=== PATIENT | female | born 1975 | race Caucasian/White ===

== ENCOUNTER 2017-04-30 10:25 | Inpatient (IN) | payer BC ==
[~2017-04-30] VITALS: Ht 160 cm; Wt 52.1 kg
--- NOTE | ~2017-04-30 | CO ---
Unit #: [id number] #: [id number] Patient: LATOSHA SLADE [id number] [facility] [address] [facility]. [place], [place] [address] [id number] I MR#: [id number] NAME: LATOSHA SLADE ROOM: 562 Age: 41 Sex: F Admission Date: 04/30/2017 : 1975 Attending Physician: Randa Gipson M.D. Primary Care Physician: Primary Care Physician No Consultation Date: 05/02/2017 CONSULTATION REPORT REASON FOR CONSULTATION Followup. DISCUSSION Ms. Latosha Slade is a 41-year-old white female, seen in room CCU-3, bed 16, on 05/02/[address] [facility]. The patient was more awake, alert, able to identify her family. The patient somewhat confused and does not remember the circumstances that brought her into the hospital. The patient admitted drinking alcohol. The patient's vital signs; temperature 98.4, heart rate 97, heart rate 25, blood pressure 109/63, and oxygen saturation 97%. The patient was more calm, cooperative, alert, awake, and oriented in place, self, and person. The patient denied any suicidal or homicidal ideation. No agitation. Redirectable and cooperative. REVIEW OF SYSTEMS Complete review of systems unremarkable. MENTAL STATUS EXAMINATION General appearance; the patient dressed in hospital attire, lying comfortably in bed, receiving IV. No agitation, but sad and dysphoric mood. Attention span and concentration, fair. Speech, slow in volume. Oriented in self, place, and person. Mood and affect, flat. Thought process, circumstantial. Thought content, the patient denied any thoughts of harming self or others, but guarded. Recent and remote memory, fair to slightly impaired. Language, fair. Fund of knowledge, fair. Insight and judgment, fair to slightly impaired. DIAGNOSES Psychiatric: Alcohol use disorder, severe, F10.20; delirium, F05, resolving; and opioid use disorder, severe, F11.20. ASSESSMENT AND PLAN 1. Supportive psychotherapy and psychoeducation provided to the patient and family. 2. Educated about benefits and side effects of medication and course and prognosis of illness. 3. Advised to continue with current treatment. If needed, consider alternative medication. We will continue to follow. Please feel free to call if any questions, telephone #[phone]. Dictated by... Tho Prescott M.D. Unit #: [id number] #: [id number] Patient: LATOSHA SLADE ANNMARIE/modl TD: 05/03/2017 14:55 JOB #: [id number] CONSULTATION REPORT Page 1 of 1 X Tho Prescott MD X CONSULTATION REPORT
--- NOTE | ~2017-04-30 | CO ---
Unit #: [id number] #: [id number] Patient: LATOSHA VILA [id number] [address] [place], [place] [address] [id number] I MR#: [id number] NAME: LATOSHA VILA ROOM: CIC3 Age: 41 Sex: F Admission Date: 04/30/2017 : 1975 Attending Physician: Katherine Roldan M.D. Primary Care Physician: Katelyn Primary Care Physician Consultation Date: 04/30/2017 CONSULTATION REPORT REASON FOR CONSULT ICU management. CHIEF COMPLAINT Unresponsiveness. HISTORY OF PRESENT ILLNESS This is a 41-year-old female with past medical history significant for alcoholism, who presented to the emergency room with a cardiac arrest. 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 CPR was started immediately and 911 was called. Per report patient was found to be in ventricular fibrillation/Torsades. Patient received 300 mg of amiodarone bolus. Patient also received 2 mg of Narcan and six rounds of shock. Patient was brought to the emergency room where she was intubated. Currently patient is awake, clumsy. She is following simple commands. Initially she had a left lower extremity weakness but she is moving all her extremities at this point. Per family patient had cholecystectomy in May and since then she has been using narcotics for chronic right-side pain. Patient also drinks daily. PAST MEDICAL HISTORY None. PAST SURGICAL HISTORY Cholecystectomy. ALLERGIES No known drug allergy. HOME MEDICATION Narcotics, unsure of what type. SOCIAL HISTORY Patient smokes one pack per day. She drinks alcohol heavily but unknown quantity. No history of illicit drug abuse except for taking her narcotics. REVIEW OF SYSTEMS Unable to obtain. Unit #: [id number] #: [id number] Patient: LATOSHA VILA FAMILY HISTORY None. PHYSICAL EXAMINATION GENERAL: The patient is intubated, on the vent. Currently she is waking up and she is moving all extremities but initially she had a left lower extremity weakness. VITAL SIGNS: Blood pressure 99/73. Respiratory rate 18. O2 saturation 100. Heart rate 112. HEENT: Normocephalic and atraumatic. PERRLA. EOMI. NECK: Supple. No JVD. No lymphadenopathy. CHEST: Clear to auscultation bilaterally. HEART: S1, S2. Sinus tachycardia. ABDOMEN: Soft, nontender. Bowel sound is positive. No hepatosplenomegaly. EXTREMITIES: No edema or cyanosis. SKIN: No rashes. BANQUET CAPTAIN: Patient currently is waking up. Initially she was isolated on her left side and later she started using the left upper extremity and the last thing she moved was the left lower extremity. Her movements are very clumsy. DIAGNOSTIC STUDIES LABORATORY: Creatinine 0.7, CO2 28, lactic acid 7, white blood count 16.2, hemoglobin 13.9, platelets 235. ASSESSMENT 1. Acute hypoxic respiratory failure. 2. Status post ventricular fibrillation/Torsades cardiac arrest. 3. Alcoholism. 4. Drug overdose. 5. Leukocytosis. PLAN 1. Patient is critical. Will continue patient on the vent and we will assess for extubation when appropriate. 2. Generous IV hydration. Will follow urine output. 3. Will obtain CK level to rule out rhabdomyolysis. 4. Will initiate CIWA protocol if gets extubated. 5. Will watch off antibiotics but she may need something for aspiration pneumonia. 6. Cardiac eval given vfib arrest. 7. DVT and GI prophylaxis. Critical care time spent on this patient was 40 minutes. Dictated by... Bhavya Canales TD: 04/30/2017 21:26 Unit #: [id number] #: [id number] Patient: LATOSHA VILA JOB #: [id number] CONSULTATION REPORT Page 1 of 1 X LEAENNE BHATTI MD X CONSULTATION REPORT
--- NOTE | ~2017-04-30 | A ---
[facility] Nutrition Therapy DATE: 05/01/17 Patient: LATOSHA VILA Physician: ANDREW Address: [address] [place] [address] Room/Bed: [address], Zip: [place] [address] Admit Date: 04/30/17 Date of : [birth year] Height: 5 3 Weight: 121 55 NUTRITIONAL ASSESSMENT: REASON: Low BMI, no diet order in ICU Admitting dx: 41 y/o female found down at work s/p arrest, + CPR, ?OD PMH: ETOH abuse since 22 yrs of age (drinks ~fifth whiskey daily), ?pancreatitis, opioid abuse, joselyn (6-7 months ago), 1 ppd smoker Anthropometrics: Ht: 63", Wt: 106 lbs, BMI: 18 (underweight) Labs: Na 146, K+ 2.2, Mg 1.3, Ca 4.9, Albumin 1.5, AST 126 Meds: Banana bag @ 125 ml/hr, loperamide, phenergan, therapeutic formula, corey (weaning), mgso4, kcl, thiamine, folic acid I/O & Bowel function: Last BM unknown, + constipation due to prolonged opiate use Skin Integrity: No significant issues, no edema Assessment: Chart reviewed, events noted. See admitting dx above. Pt has hx of daily ETOH and opiate abuse. She was extubated last night to 5L nasal cannula. She is clinically underweight, likely 2' above polysubstance abuse and variable PO intake. She will get a stat echo today, lytes being replaced. Per RN pt is not appropriate for interview at this time due to her behavior. No diet ordered as of yet. RD will follow to further determine adequacy of PO intake and nutritional needs. Pt could benefit from an oral supplement. Dx: 1) Inadequate energy intake r/t diet not yet advanced AEB NPO x 2 days. 2) Underweight r/t polysubstance abuse AEB BMI 18. Intervention: Regular diet + ONS BID Monitoring, Evaluation and Goals: 1. Tolerance of oral diet advancement with PO intake > 50% of meals. 2. Gradual weight gain towards a healthy BMI range. 3. Promote regular BM's. 4. Improvement in labs (lytes). Monitor: per protocol, criteria to determine if above goals met Recommendations: [facility] Nutrition Therapy DATE: 05/01/17 Patient: LATOSHA VILA Physician: ANDREW Address: [address] [place] [address] Room/Bed: [address], Zip: [place] [address] Admit Date: 04/30/17 Date of : [birth year] Height: 5 3 Weight: 121 55 1. Once medically feasible advance to regular diet as tolerated. Once diet advanced please order Ensure shakes BID. 2. Encourage ETOH cessation. 3. Continue to replace lytes prn. Check Phos level with next lab draw. 4. Please weigh q 3 days for monitoring purposes, as the pt is clinically underweight. 5. Encourage fluids, bowel regimen prn to promote regular BM's. RD will follow Mild-moderate nutrition risk Respectfully, aMria Antonia Diego RD, LD Food and Nutritional Services [facility] cc: client file
--- NOTE | ~2017-04-30 | OR ---
Unit #: [id number] #: [id number] Patient: LATOSHA VILA [id number] [address] [address] [id number] I MR#: [id number] NAME: LATOSHA VILA ROOM: [facility] Date of Procedure: 05/01/2017 Admission Date: 04/30/2017 Surgeon: Leeanne Roldan M.D. : 1975 Attending Physician: Randa Gipson M.D. Primary Care Physician: Katelyn Primary Care Physician PROCEDURE OPERATIVE NOTE PROCEDURE PERFORMED Right intrajugular central venous catheter placement with ultrasound guidance. INDICATION FOR PROCEDURE Cardiogenic shock. PREOPERATIVE DIAGNOSIS Cardiac arrest. POSTOPERATIVE DIAGNOSIS Cardiac arrest and cardiogenic shock. COMPLICATIONS None. PREMEDICATION Lidocaine 2% topical. Ativan 2 mg IV x1. DESCRIPTION OF PROCEDURE An informed consent was obtained from the patient after explaining the benefit and risk of this procedure. Patient was prepped and positioned in a proper way. Then with the assistance of our nurse practitioner, Jose Enrique Echavarria, the patient was cleaned with chlorhexidine, then a sterile body drape was applied. Then with the ultrasound guidance, needle was inserted in the right IJ until blood flow was obtained. Then a guidewire was inserted and the needle was removed. Then, dilator was inserted in the right IJ area to create a tract for the catheter. The catheter was inserted over the guidewire and the guidewire was removed. Then, catheter was sutured in place and flushed appropriately. Clean dressing was applied and STAT chest x-ray is pending at the time of dictation. Dictated by... Bhavya Canales TD: 05/01/2017 10:53 JOB #: [id number] Unit #: [id number] #: [id number] Patient: LATOSHA VILA PROCEDURE OPERATIVE NOTE Page 1 of 1 X LEEANNE BHATTI MD X PROCEDURE OPERATIVE NOTE
--- NOTE | ~2017-04-30 | CT71 ---
[facility] A Service of [facility] RADIOLOGY TEXT RESULTS PATIENT: LATOSHA VILA LOCATION: [address] : [birth year] UNIT #: [id number] AGE: [address]: Randa Gipson MD SEX: F ORDER DR: [id number] [facility] [address] [facility]. [place], [place] [address] [id number] I MR#: [id number] Acc #: [id number] NAME: LATOSHA VILA : 1975 SEX: F STUDY DATE/TIME: 04/30/2017 13:31 UNIT: [facility] ROOM: [facility] STUDY DESCRIPTION: CT Head Wo Contrast Attending Physician: Katherine Roldan M.D. Ordering Physician: Rom Carrasco M.D. MEDICAL IMAGING REPORT This report is preliminary unless electronic signature is present EXAM CT head 04/30/2017 HISTORY Full arrest. Unresponsive at work. Found possible pain meds empty today. TECHNIQUE CT head performed skull base through vertex without intravenous contrast. This CT exam was performed with one or more of the following radiation dose reduction techniques: automatic exposure control, adjustment of mA and/or kV according to patient size, and iterative reconstruction. COMPARISON STUDIES None. FINDINGS Brainstem unremarkable. Cerebellum and cerebral hemispheres show normal turcios matter-white matter differentiation. No hemorrhage. No evidence of acute cortical ischemia. Midline structures nondisplaced. Basal ganglia intact. Ventricles, cisterns and sulci normal in size and contour. No intra- or extraaxial mass effect or abnormal intracranial fluid collection. Intraorbital soft tissues are unremarkable in visualized extent. Visualized paranasal sinuses and mastoid air cells clear. No fracture. IMPRESSION 1. Normal CT of the head. If patient has ongoing neurologic symptoms, consider follow-up imaging. [facility] A Service of [facility] RADIOLOGY TEXT RESULTS PATIENT: LATOSHA VILA LOCATION: [address] : [birth year] UNIT #: [id number] AGE: [address]: Randa Gipson MD SEX: F ORDER DR: Dictated by... Morgan Branch M.D. THIS IS AN ELECTRONICALLY VERIFIED REPORT Morgan Branch M.D. at 05/01/2017 10:44 PM JENISE/alfreda TD: 04/30/2017 21:07 JOB #: [id number] MEDICAL IMAGING REPORT Page 1 of 1 COPY
--- NOTE | ~2017-04-30 | HP ---
Unit #: [id number] #: [id number] Patient: LATOSHA VILA [id number] [address] [address] [id number] I MR#: [id number] NAME: LATOSHA VILA ROOM: 50120 Age: 41 Sex: F Admission Date: 04/30/2017 : 1975 Attending Physician: Micki Roldan M.D. HISTORY AND PHYSICAL CHIEF COMPLAINT Unresponsiveness. HISTORY OF PRESENT ILLNESS The patient is a 41-year-old female with a history of drug use with opioids who presented to the emergency room with unresponsiveness. The patient was found unresponsive at work. The patient had CPR performed, and the patient was found in ventricular fibrillation/torsades. The patient received 300 mg of amiodarone bolus. The patient also received 2 mg of Narcan and 6 rounds of shocks. The patient was brought to the emergency room with bagging. The patient was intubated at the emergency room. The patient is unable to provide any history, and the history is obtained by speaking to the patient's mother and the at the bedside. The patient had a cholecystectomy six to eight months ago, and patient has been using pain killers for pain on the right side. The patient also has a history of alcohol abuse and drinks alcohol daily and smokes a pack of cigarettes per day. No further history is available. The patient was found to be in septic shock with a lactate of 7.3 and resuscitated arrest. No further history is available. PAST MEDICAL HISTORY None. PAST SURGICAL HISTORY Cholecystectomy. ALLERGIES No known drug allergies. HOME MEDICATIONS None. SOCIAL HISTORY Smokes a pack per day, drinks alcohol daily of unknown quantity, and known history of illicit drug abuse. FAMILY HISTORY Reviewed and none. REVIEW OF SYSTEMS Unable to perform as the patient is unable to provide any history. PHYSICAL EXAMINATION GENERAL: Patient is status post intubation. Unit #: [id number] #: [id number] Patient: LATOSHA VILA HEENT: Head atraumatic, normocephalic. Pupils sluggishly reactive. Dry mucous membranes. Status post orotracheal intubation. HEART: Regular rate and tachycardic. Positive for murmur. LUNGS: Coarse breath sounds. Decreased air entry at the bases. ABDOMEN: Soft. EXTREMITIES: No track gore, no cyanosis, no clubbing. NEUROLOGIC: Patient is status post intubation and sedated and unable to provide any history. PSYCHIATRIC: Unable to assess. DIAGNOSTIC STUDIES LABORATORY: INR is 1.2. Sodium 141, potassium 3.7, chloride 97, bicarb 28, glucose 213, BUN 10, creatinine 0.7, AST 231, ALT 32, alkaline phosphatase 226, direct bilirubin 0.9, indirect bilirubin 1.1, total protein 5.4, and albumin 2.6. ABG shows pH of 7.25, PCO2 of 55, and PO2 of 118. Lactic acid is 7.3. WBC 16.2, hemoglobin 13.9, hematocrit 41, and platelets 235,000 with 74% neutrophils. Troponin less than 0.05. Urine drug screen is positive for benzodiazepines and opiates. Urinalysis is positive for trace leukocyte esterase and urine WBCs 50-100. Ammonia level is 68. IMAGING: CT of the head is negative. Chest x-ray shows lungs are hyperinflated. CARDIOLOGY: EKG shows undetermined rhythm with right axis deviation. Repeat EKG shows sinus tachycardia with occasional PVCs and prolonged QTc of 576. ASSESSMENT 1. Resuscitated arrest. 2. Septic shock. 3. Acute respiratory failure. 4. Polysubstance abuse. PLAN Admit the patient to the ICU. Patient will be seen by Critical Care with Dr. Fitzgerald and Cardiology consult for history of ventricular fibrillation and torsades/cardiac arrest. Patient will continue with septic shock protocol. Repeat chest x-ray to rule out (1) aspiration. Follow with blood cultures and urine cultures. Patient's prognosis is guarded. Discussed in detail with the patient's family at the bedside. Further recommendations will follow. Dictated by Bhavya Paniagua TD: 04/30/2017 17:22 JOB #: [id number] Unit #: [id number] #: [id number] Patient: LATOSHA VILA HISTORY AND PHYSICAL Page 1 of 1 X MICKI ROLDAN MD X HISTORY AND PHYSICAL
--- NOTE | ~2017-04-30 | CR72 ---
[facility] A Service of [facility] RADIOLOGY TEXT RESULTS PATIENT: LATOSHA VILA LOCATION: [facility] CICCU3-16 : [birth year] UNIT #: [id number] AGE: [address]: Randa Gipson MD SEX: F ORDER DR: [id number] [facility] [address] [facility]. [place], [place] [address] [id number] I MR#: [id number] Acc #: [id number] NAME: LATOSHA VILA : 1975 SEX: F STUDY DATE/TIME: 04/30/2017 11:04 UNIT: [facility] ROOM: 27116 STUDY DESCRIPTION: CR Chest Single View Portable Attending Physician: Katherine Roldan M.D. Ordering Physician: Rom Carrasco M.D. Primary Care Physician: No Primary Care Physician MEDICAL IMAGING REPORT This report is preliminary unless electronic signature is present EXAM Portable chest x-ray. HISTORY Intubation. FINDINGS Two view radiograph of the chest is presented. Endotracheal tube terminates approximately 1.5 cm above the armando. Placement of new thoracic trachea could be withdrawn approximately 1-2 cm and reassessed radiographically. There is an enteric tube which is coiled in the proximal stomach and probably terminates near the junction of the proximal and middle thirds of stomach. The lungs are well inflated without evidence of acute pulmonary disease, pleural effusion or pneumothorax. No suspicious nodule. Heart and mediastinum are within normal limits of size and contour. Dictated by... Morgan Branch M.D. THIS IS AN ELECTRONICALLY VERIFIED REPORT Morgan Branch M.D. at 05/01/2017 10:44 PM JENISE/nima TD: 04/30/2017 16:22 JOB #: [id number] MEDICAL IMAGING REPORT Page 1 of 1 COPY
--- NOTE | ~2017-04-30 | OR ---
Unit #: [id number] #: [id number] Patient: LATOSHA VILA [id number] [address] [address] [id number] I MR#: [id number] NAME: LATOSHA VILA ROOM: [facility] Date of Procedure: 05/01/2017 Admission Date: 04/30/2017 Surgeon: Leeanne Roldan M.D. : 1975 Attending Physician: Randa Gipson M.D. Primary Care Physician: No Primary Care Physician PROCEDURE OPERATIVE NOTE PREOPERATIVE DIAGNOSIS Cardiogenic shock and respiratory failure. POSTOPERATIVE DIAGNOSIS Cardiogenic shock and cardiac arrest. PROCEDURE PERFORMED PREMEDICATION 1. Morphine 2 mg IV x1. 2. Ativan 2 mg IV x1. 3. Lidocaine 2% topical. COMPLICATIONS None. DESCRIPTION OF PROCEDURE An informed consent was obtained from the patient's , after explaining the benefit and risk of this procedure. Patient was prepped and positioned in a proper way. Then with the ultrasound guidance, a needle was inserted in the right femoral vein until blood flow was obtained, then guidewire was inserted and the needle was removed, then a dilator was used to create tract for the catheter and the catheter was inserted over the guidewire and the guidewire was removed. The catheter was flushed appropriately and sutured in place. A clean dressing and Biopatch were applied and patient tolerated her procedure well with no immediate complications. Dictated by... Leeanne Roldan M.D. EA/david TD: 05/01/2017 12:37 JOB #: [id number] Unit #: [id number] #: [id number] Patient: LATOSHA VILA PROCEDURE OPERATIVE NOTE Page 1 of 1 X LEEANNE BHATTI MD X PROCEDURE OPERATIVE NOTE
--- NOTE | ~2017-04-30 | EKG ---
PATIENT: LATOSHA VILA UNIT #: [id number] Ventricular Rate: 103 BPM Atrial Rate: 103 BPM P-R Interval: 138 ms QRS Duration: 100 ms Q-T Interval: 440 ms QTC Calculation(Bezet): 576 ms P [place]: 80 degrees Calculated R [place]: -19 degrees Calculated T [place]: 97 degrees Diagnosis Line: Sinus tachycardia with occasional Premature Diagnosis Line: ventricular complexes Diagnosis Line: Nonspecific ST and T wave abnormality Diagnosis Line: Prolonged QT Diagnosis Line: Abnormal ECG Diagnosis Line: When compared with ECG of 30-APR-2017 10:33, Diagnosis Line: (unconfirmed) Diagnosis Line: Previous ECG has undetermined rhythm, needs review Diagnosis Line: Questionable change in QRS duration Diagnosis Line: Confirmed by MANOLO MORRISON MD ([id number]) on 05/01/2017 Diagnosis Line: 11:43:06 PM INTERPRETING MD: PRINCE DOBBINS
--- NOTE | ~2017-04-30 | CO ---
Unit #: [id number] #: [id number] Patient: LATOSHA SLADE [id number] [address] [facility]. [place], [place] [address] [id number] I MR#: [id number] NAME: LATOSHA SLADE ROOM: 562 Age: 41 Sex: F Admission Date: 04/30/2017 : 1975 Attending Physician: Randa Gipson M.D. Primary Care Physician: Primary Care Physician No Consultation Date: 05/04/2017 CONSULTATION REPORT REASON FOR CONSULTATION Followup. DISCUSSION Ms. Latosha Slade is a 41-year-old white female, seen in room 562, bed 1, at [facility] on 05/04/2017. The patient reports feeling much better. The patient was transferred from ICU to 5B floor. The patient reports that she will be going for a cardiac cath. Made good eye contact. Able to answer questions appropriately. Alert and oriented in time, place, and person. Denied any psychotic symptoms or any suicidal ideation. REVIEW OF SYSTEMS Complete review of systems is unremarkable. PSYCHIATRIC EXAMINATION The patient's vital signs; temperature 98.0, heart rate 79, respiratory rate 18, blood pressure 198/68, and oxygen saturation 98%. General appearance; the patient dressed in hospital attire, lying comfortably in bed. Attention span and concentration, fair. Speech, regular rate and coherent. Oriented in time, place, and person. Thought process, coherent. Recent and remote memory, fair. Language, intact. Fund of knowledge, fair. Insight and judgment, fair to slightly impaired. DIAGNOSES Psychiatric: Alcohol use disorder, severe, F10.20; opioid use disorder, severe, F11.20; and delirium, F05, resolved. ASSESSMENT/PLAN 1. Supportive psychotherapy and psychoeducation provided to the patient. 2. Educated about benefits and side effects of medication and course and prognosis of illness. 3. Advised to continue with current treatment. If needed, consider further adjustment of medication. We will continue to follow. Please feel free to call if any questions, telephone #[phone]. Dictated by... Tho Prescott M.D. ANNMARIE/ashlie TD: 05/06/2017 17:08 JOB #: [id number] Unit #: [id number] #: [id number] Patient: LATOSHA SLADE CONSULTATION REPORT Page 1 of 1 X Tho Prescott MD CONSULTATION REPORT
--- NOTE | ~2017-04-30 | EKG ---
PATIENT: LATOSHA VILA UNIT #: [id number] Ventricular Rate: 124 BPM Atrial Rate: 141 BPM P-R Interval: 122 ms QRS Duration: 72 ms Q-T Interval: 360 ms QTC Calculation(Bezet): 517 ms P [place]: 67 degrees Calculated R [place]: 103 degrees Calculated T [place]: 51 degrees Diagnosis Line: Normal sinus rhythm with frequent Premature Diagnosis Line: ventricular complexes Diagnosis Line: Rightward axis Diagnosis Line: Nonspecific ST and T wave abnormality Diagnosis Line: Poor data quality Diagnosis Line: Abnormal ECG Diagnosis Line: No previous ECGs available Diagnosis Line: Confirmed by MANOLO MORRISON MD ([id number]) on 05/01/2017 Diagnosis Line: 11:39:32 PM INTERPRETING MD: PRINCE DOBBINS
--- NOTE | ~2017-04-30 | EKG ---
PATIENT: LATOSHA VILA UNIT #: [id number] Ventricular Rate: 92 BPM Atrial Rate: 92 BPM P-R Interval: 104 ms QRS Duration: 86 ms Q-T Interval: 578 ms QTC Calculation(Bezet): 714 ms P Bo[place] D Arc: 72 degrees Calculated R Bo[place] Arc: 40 degrees Calculated T Bo[place] D Arc: -123 degrees Diagnosis Line: Sinus rhythm with short WA Diagnosis Line: Low voltage QRS Diagnosis Line: ST and T wave abnormality, consider inferior Diagnosis Line: ischemia Diagnosis Line: ST and T wave abnormality, consider anterolateral Diagnosis Line: ischemia Diagnosis Line: Prolonged QT Diagnosis Line: Abnormal ECG Diagnosis Line: When compared with ECG of 30-APR-2017 12:53, Diagnosis Line: Significant changes have occurred Diagnosis Line: Confirmed by MANOLO MORRISON MD ([id number]) on 05/03/2017 Diagnosis Line: 7:06:23 PM INTERPRETING MD: PRINCE DOBBINS
--- NOTE | ~2017-04-30 | DS ---
Unit #: [id number] #: [id number] Patient: LATOSHA VILA [id number] [facility]. [place], [place] [address] [id number] I MR#: [id number] NAME: LATOSHA VILA ROOM: 562 Age: 41 Sex: F Admission Date: 04/30/2017 : 1975 Discharge Date: Attending Physician: Randa Gipson M.D. Primary Care Physician: No Primary Care Physician DISCHARGE SUMMARY HISTORY OF PRESENT ILLNESS/HOSPITAL COURSE The patient is a 41-year-old female, with a prior history of drug use with opioid dependence, who had had gallbladder surgery several months ago, became dependent on opioids. Was also noted to be a longstanding alcoholic. She apparently was found unresponsive at work. While she was there, she had CPR performed by bystanders. She also had EMS services which were consulted. They arrived. Patient was found to be in atrial fibrillation as well as Torsades. She had received appropriate treatment. She also received Narcan. She was intubated en route and brought to the hospital for further evaluation. On initial part of hospital stay, she was placed in the ICU under the initial premise of septic shock as well as resuscitated arrest. Initial lactic acid level was elevated at 7.3 and she was appropriately placed on sepsis protocol. Urine tox screen was positive for opiates as well as benzodiazepines. 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 She was appropriately managed, placed on IV antibiotics with a possible underlying aspiration pneumonia. It was noted she did have elevated troponin level initially. It was felt to be secondary to demand ischemia secondary to aforementioned arrest but we did place consultation to Dr. Pierce of cardiology services. Ultimately, patient underwent 2D echocardiogram which showed a severely reduced ejection fraction of 10% which was noted. Yesterday, she underwent cardiac catheterization which did reveal normal coronaries but it did confirm a decreased EF of approximately 10%. She has had a prolonged QT interval which has been noted on monitor as well as EKGs and with her decreased EF, for secondary prevention of cardiac , a decision has been made for patient to be transferred downtown for pacemaker placement. After she was extubated from ICU, she has shown improvement and she is currently improving on room air. However, she does have some level of anoxic encephalopathy and her understanding of the situation. I do question she has had numerous family members who are present at bedside. Overall, her prognosis at this point is guarded only because I am not sure if she grasps the importance of alcohol cessation as well as drug cessation completely. 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 At this point, patient will be transferred downtown for further evaluation of the cardiology services. She is clinically stable for transfer. Unit #: [id number] #: [id number] Patient: LATOSHA VILA FINAL DISCHARGE/TRANSFER DIAGNOSES 1. Resuscitated arrest. 2. Opioid overdose. 3. Alcohol abuse. 4. Some degree of anoxic encephalopathy. 5. Alcohol-induced cardiomyopathy. 6. Acute systolic heart failure, ejection fraction approximately 10%. 7. Malnutrition/failure to thrive secondary to chronic alcohol abuse. 8. Elevated liver function tests, likely secondary to shock liver. FINAL DISCHARGE MEDICATIONS 1. Neurontin 300 mg p.o. b.i.d. 2. Routine p.r.n. medications including Ativan as well as loperamide. 3. Bentyl 10 mg p.o. q.8 p.r.n. 4. Nicotine patch 21 mg daily. 5. Lopressor 25 mg p.o. q.6. 6. Bumex 1 mg p.o. b.i.d. 7. Zestril 5 mg p.o. b.i.d. 8. Multivitamin daily. 9. Aspirin 81 mg p.o. daily. 10. Percocet 5/325, one tablet p.o. q.4 p.r.n. 11. Aldactone 25 mg p.o. daily. 12. Mag ox 400 mg p.o. b.i.d. DISCHARGE CONDITION Stable. DISCHARGE DISPOSITION [facility]. Dictated by... Bhavya Carlos/zaina TD: 05/05/2017 11:38 JOB #: [id number] DISCHARGE SUMMARY Page 1 of 1 X Randa Gipson MD X DISCHARGE SUMMARY
--- NOTE | ~2017-04-30 | EKG ---
PATIENT: LATOSHA VILA UNIT #: [id number] Ventricular Rate: 78 BPM Atrial Rate: 78 BPM P-R Interval: 128 ms QRS Duration: 92 ms Q-T Interval: 550 ms QTC Calculation(Bezet): 627 ms P [place]: 65 degrees Calculated R [place]: 45 degrees Calculated T [place]: -129 degrees Diagnosis Line: Normal sinus rhythm Diagnosis Line: Possible Left atrial enlargement Diagnosis Line: ST and T wave abnormality, consider inferior Diagnosis Line: ischemia Diagnosis Line: ST and T wave abnormality, consider anterolateral Diagnosis Line: ischemia Diagnosis Line: Prolonged QT Diagnosis Line: Abnormal ECG Diagnosis Line: When compared with ECG of 02-MAY-2017 10:52, Diagnosis Line: (unconfirmed) Diagnosis Line: QT has shortened Diagnosis Line: Confirmed by MANOLO MORRISON MD ([id number]) on 05/03/2017 Diagnosis Line: 7:20:09 PM INTERPRETING MD: PRINCE DOBBINS
--- NOTE | ~2017-04-30 | EKG ---
PATIENT: LATOSHA VILA UNIT #: [id number] Ventricular Rate: 78 BPM Atrial Rate: 78 BPM P-R Interval: 142 ms QRS Duration: 90 ms Q-T Interval: 448 ms QTC Calculation(Bezet): 510 ms P Holden: 63 degrees Calculated R Holden: 52 degrees Calculated T Holden: -134 degrees Diagnosis Line: Normal sinus rhythm Diagnosis Line: Possible Left atrial enlargement Diagnosis Line: ST and Marked T wave abnormality, consider Diagnosis Line: anterolateral ischemia Diagnosis Line: Prolonged QT Diagnosis Line: Abnormal ECG Diagnosis Line: When compared with ECG of 03-MAY-2017 06:35, Diagnosis Line: QT has shortened Diagnosis Line: Confirmed by MANOLO MORRISON MD ([id number]) on 05/06/2017 Diagnosis Line: 2:51:15 PM INTERPRETING MD: PRINCE DOBBINS
--- NOTE | ~2017-04-30 | CO ---
Unit #: [id number] #: [id number] Patient: LATOSHA SLADE [id number] [facility]. [place], [place] [address] [id number] I MR#: [id number] NAME: LATOSHA SLADE ROOM: 56 Age: 41 Sex: F Admission Date: 04/30/2017 : 1975 Attending Physician: Randa Gipson M.D. Primary Care Physician: Primary Care Physician No Consultation Date: 05/03/2017 CONSULTATION REPORT REASON FOR CONSULTATION Followup. DISCUSSION Ms. Latosha Slade is a 41-year-old white female, seen in CCU-3, bed 16 on 05/03/2017 at [facility]. The patient is more awake and alert, able to answer questions appropriately. The patient has a history of alcohol abuse and opiate abuse. The patient reports making progress. Denied any thoughts of harming self or others or any agitation. The patient's vital signs; temperature 98.0, pulse 91, respirations 24, blood pressure 95/73, and oxygen saturation 97%. REVIEW OF SYSTEMS A complete review of systems is unremarkable. MENTAL STATUS EXAMINATION General appearance; the patient dressed casually. Attention span and concentration, fair. Oriented in time, place, and person. Mood and affect; sad, dysphoric, and labile. Thought process, circumstantial. Thought content; guarded, paranoid, but denied any thoughts of harming self or others. Recent and remote memory, fair. Language, intact. Fund of knowledge, fair. Insight and judgment, fair to slightly impaired. DIAGNOSES Psychiatric: 1. Alcohol use disorder, severe, F10.20. 2. Opiate use disorder, severe, F11.20. 3. Major depressive disorder, recurrent, severe, F33.2. ASSESSMENT AND PLAN 1. Supportive psychotherapy and psychoeducation provided to the patient. 2. Educated about benefits and side effects of medication and course and prognosis of illness. 3. Advised to continue with current treatment. We will continue to follow. If needed, consider further adjustment of medication. Please feel free to call if any questions, telephone #[phone]. Dictated by... Tho Prescott M.D. ANNMARIE/ashlie TD: 05/06/2017 18:37 Unit #: [id number] #: [id number] Patient: LATOSHA SLADE JOB #: [id number] CONSULTATION REPORT Page 1 of 1 X Tho Prescott MD CONSULTATION REPORT
--- NOTE | ~2017-04-30 | CO ---
Unit #: [id number] #: [id number] Patient: LATOSHA VILA [id number] [place], [place] [address] [id number] I MR#: [id number] NAME: LATOSHA VILA ROOM: [facility] Age: 41 Sex: F Admission Date: 04/30/2017 : 1975 Attending Physician: Randa Gipson M.D. Primary Care Physician: No Primary Care Physician CONSULTATION REPORT REASON FOR CONSULTATION Resuscitated arrest. HISTORY OF PRESENT ILLNESS This is a 41-year-old white female who was sitting at her desk at work yesterday and slumped over. When EMS arrived, she was in ventricular fibrillation with questionable Torsades and was shocked back to normal sinus rhythm. She was intubated and brought to the emergency room and was subsequently intubated. She did receive 300 mg of amiodarone bolus and was started on amiodarone drip. The patient was found to have a severely low magnesium level of 1.3. Initial troponin negative; however, it has peaked at 3.49. CK elevated at 2253. Her electrocardiogram showed frequent premature ventricular complexes but no acute ischemic changes. The patient is currently extubated and is not able to communicate. Her sister, who is at bedside, provides her medical history. According to the sister, the patient drinks a fifth of alcohol daily since age 22. She states she did drink a can of beer last night. She has had no prior cardiac history or testing. From her knowledge, she has no medical history except she has been told to have a mitral valve prolapse in the past and recent pancreatitis. When asked, the patient states she has been vomiting. She has risk factors for ischemic heart disease that includes nicotine abuse. Her sister states that she has been taking pain medications, apparently bought from the streets, because of abdominal pain. PAST MEDICAL HISTORY 1. Mitral valve prolapse. 2. Pancreatitis. 3. ETOH abuse. 4. Active smoker. PAST SURGICAL HISTORY Cholecystectomy. 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 She smokes unknown amount of cigarettes per day. According to her sister, she drinks a half pint of alcohol on a daily basis. Has a history of illicit drug use with narcotics. FAMILY HISTORY Father at age 62 and had a history of heart attack and congestive Unit #: [id number] #: [id number] Patient: LATOSHA VILA heart failure. ALLERGIES No known drug allergies. HOME MEDICATIONS No medications listed. REVIEW OF SYSTEMS Unable to obtain because of the patient's current mental status. PHYSICAL EXAMINATION VITAL SIGNS: Blood pressure 104/80, heart rate 97, temperature 97.5. GENERAL: This is a well developed, thin, white female who is in no acute respiratory distress. NEUROLOGICAL: She awakens briefly, talks very infrequent. There are no obvious focal weaknesses. NECK: Trachea is midline. No thyromegaly or lymphadenopathy. No jugular venous distention. HEART: S1, S2 heart sounds are normal. No murmurs, no rubs or clicks. Regular rate and rhythm. LUNGS: Diminished breath sounds with poor inspiratory effort. ABDOMEN: Soft. Tender with palpation in the epigastric region. Bowel sounds are positive. No masses appreciated. EXTREMITIES: Palpable pedal pulses but no leg edema. SKIN: Warm and dry. DIAGNOSTIC STUDIES LABORATORY: Glucose 75, BUN 9, creatinine 0.4, sodium 146, potassium 2.2, magnesium 1.3, calcium 4.9, AST 126, ALT 29, CK 2369, troponin 1.37 from 3.49. Alcohol less than 5. White count 13.9, hemoglobin 10.1, hematocrit 30.7, platelet count 169. Urine drug screen positive for benzodiazepines and opiates. IMAGING: Chest x-ray shows no active disease. CT of the head normal. CARDIOVASCULAR: Electrocardiogram - sinus tachycardia with a rate of 103 beats per minute with poor R wave progression V1 through V3. QTC prolongation 576 msec. IMPRESSION 1. Status post resuscitated arrest. 2. Questionable opiate overdose. 3. ETOH cardiomyopathy. 4. Nicotine abuse. 5. Severe hypokalemia. 6. Severe hypomagnesemia. 7. Protein calorie malnutrition. 8. Elevated troponin: Cannot rule out an acute non-ST myocardial infarction. PLAN Unit #: [id number] #: [id number] Patient: LATOSHA VILA 1. Cardiology was consulted for resuscitated arrest. Resuscitated arrest may be some ventricular fibrillation or Torsades. 2. Correct electrolytes. 3. Check urinary output. 4. Start on beta ayden and BARBARA inhibitors once the patient's output improves and she is weaned off Levophed. 5. Serum amylase and lipase will be done. 6. May need cardiac catheterization when stable. 7. Will follow the patient with you. Thank you for allowing us to assist with this patient's care. Dictated by... Vishal Wong A.P.R.N. for Bhavya Gambino/zaina TD: 05/02/2017 07:39 JOB #: [id number] CONSULTATION REPORT Page 1 of 1 X Vishal Wong APRN X CONSULTATION REPORT
--- NOTE | ~2017-04-30 | CR72 ---
[facility] A Service of [facility] & [facility] RADIOLOGY TEXT RESULTS PATIENT: LATOSHA VILA LOCATION: [address] : [birth year] UNIT #: [id number] AGE: [address]: Randa Gipson MD SEX: F ORDER DR: [id number] [facility]. [place], [place] [address] [id number] I MR#: [id number] Acc #: [id number] NAME: LATOSHA VILA : 1975 SEX: F STUDY DATE/TIME: 05/02/2017 14:42 UNIT: [facility] ROOM: [facility] STUDY DESCRIPTION: CR Chest Single View Portable Attending Physician: Randa Gipson M.D. Ordering Physician: Antonio Pierce M.D. Primary Care Physician: Primary Care Physician No MEDICAL IMAGING REPORT This report is preliminary unless electronic signature is present EXAM Frontal chest, 05/02/2017 INDICATIONS 41-year-old female with heart failure, weakness, shortness of air symptoms 2 days, full arrest 2 days ago, overdose patient. TECHNIQUE Frontal chest compared with 04/30/2017. FINDINGS Cardiac silhouette is within normal limits. Vascularity unremarkable. Lung volumes are low and there is coarsening of the interstitial markings bilaterally. No dense consolidation or effusion. Probable infrahilar atelectasis on the right. There is a potential bleb or more confluent area of scarring in the right lung apex. No pneumothorax. IMPRESSION 1. The ET tube and enteric tube have been removed in the interval. No distinct pneumothorax. 2. There is bronchovascular crowding from low lung volumes and probable atelectasis in the perihilar and lower lung zone on the right. 3. Potential bleb or more confluent area of scarring in the right lung apex. Dictated by... Aleksandr Deras M.D. THIS IS AN ELECTRONICALLY VERIFIED REPORT Aleksandr Deras M.D. at 05/02/2017 11:08 PM SHITAL/lexa STS. [facility] A Service of [facility] & [facility] RADIOLOGY TEXT RESULTS PATIENT: LATOSHA VILA LOCATION: [facility]3-16 : [birth year] UNIT #: [id number] AGE: [address]: Randa Gipson MD SEX: F ORDER DR: TD: 05/02/2017 23:01 JOB #: [id number] MEDICAL IMAGING REPORT Page 1 of 1 COPY
--- NOTE | ~2017-04-30 | CO ---
Unit #: [id number] #: [id number] Patient: LATOSHA SLADE [id number] [facility]. [place], [place] [address] [id number] I MR#: [id number] NAME: LATOSHA SLADE ROOM: [facility] Age: 41 Sex: F Admission Date: 04/30/2017 : 1975 Attending Physician: Randa Gipson M.D. Primary Care Physician: Primary Care Physician No Consultation Date: 05/01/2017 CONSULTATION REPORT REASON FOR CONSULTATION Alcohol intoxication, withdrawal, and delirium. HISTORY OF PRESENT ILLNESS Ms. Latosha Slade is a 41-year-old female, seen in CCU-3, bed 16 on 05/01/2017 at [facility]. The patient is currently on CIWA protocol, dressed in hospital attire, somewhat agitated, requiring restrain. The patient unable to give any coherent information. Information obtained from the patient's mother, who was at the bedside and also from the nursing staff, chart reviewed, labs reviewed. The patient has received 6 mg of IV Ativan as per CIWA protocol. The patient's vital signs; pulse 96, respirations 22, blood pressure 111/55, and oxygen saturation 100%. The patient was admitted in an unresponsive state, history of drug abuse with opioids. CPR was performed in the emergency room, the patient was found to be in ventricular fibrillation/torsade. The patient has a history of alcohol abuse and drinks alcohol daily and smokes a pack of cigarette. The patient was found to be in a septic shock at the time of admission. PAST PSYCHIATRIC HISTORY Remarkable for history of ADHD, history of alcohol abuse. No other details are known at this time. MEDICAL HISTORY History of cholecystectomy. No other chronic medical condition. MEDICATION HISTORY None at the time of admission. FAMILY HISTORY AND SOCIAL HISTORY The patient has a good support system. No history of abuse, but history of substance abuse as mentioned above. The patient's urine drug screen was positive for benzodiazepine and opiates. The patient was also drinking alcohol at the time prior to admission. REVIEW OF SYSTEMS Complete review of systems is unremarkable except as mentioned above. MENTAL STATUS EXAMINATION Vital signs; please see above. General appearance; the patient dressed in hospital attire, somewhat restless in bed, receiving IV fluids, needing restraints. Attention span and concentration, poor. Speech, unable to understand. Orientation, unable to assess. Mood and affect, labile. Thought process and thought content, unable to assess. Recent and remote Unit #: [id number] #: [id number] Patient: LATOSHA SLADE memory and language, unable to assess. Fund of knowledge, unable to assess. Insight and judgment, impaired. DIAGNOSES Psychiatric: Delirium, F05; alcohol use disorder, severe, F10.20; opioid use disorder, severe, F11.20; sedative hypnotic use disorder, severe, F13.20. Secondary diagnosis: Deferred. Medical diagnosis: Please refer to H and P. Stressors: Psychosocial stressor. ASSESSMENT/PLAN 1. Supportive psychotherapy and psychoeducation provided to the patient's family. The patient unable to comprehend at this time. 2. Advised to continue with the CIWA protocol. Unable to use any antipsychotic medication at this time, because the patient was in torsade recently. We will try to avoid at this time. Continue with the CIWA protocol. We will continue to follow. Please feel free to call if any question, telephone #[phone]. Dictated by... Bhavya Darby/ashlie TD: 05/03/2017 02:22 JOB #: [id number] CONSULTATION REPORT Page 1 of 1 X Tho Prescott MD X CONSULTATION REPORT
[2017-04-30 11:36] LABS: BASOPHIL# 0.1 X10e3 (0-0.3); BASOPHIL% 0.4 % (0-2.5); DIFF IND YES; EOSINOPHIL# 0.1 X10e3 (0-0.7); EOSINOPHIL% 0.3 % (0.0-7.0); HEMOGLOBIN 13.9 gm/dL (12.0-16.0); LYMPHOCYTE# 3.3 X10e3 (1.0-3.5); LYMPHOCYTE% 20.2 % (17.0-45.0); MEAN CELL VOLUME 111.6 FL (83-96); MEAN CORPUSCULAR HEMOGLOBIN 37.8 PG (28-34); MEAN CORPUSCULAR HGB CONC 33.9 g/dL (30-36); MEAN PLATELET VOLUME 8.5 FL (6.5-11.5); MONOCYTE# 0.6 X10e3 (0-1.0); MONOCYTE% 3.7 % (3.0-12.0); NEUTROPHIL# 12.2 X10e3 (1.5-7.1); NEUTROPHIL% 75.4 % (40-75); PLATELET COUNT 235 X10e3 (140-420); RED BLOOD COUNT 3.68 X10e (3.90-5.30); RED CELL DISTRIBUTION WIDTH 12.9 % (11.0-15.5); WHITE BLOOD COUNT 16.2 X10e3 (4.0-10.5)
[2017-04-30 11:38] LABS: INR 1.2; PARTIAL THROMBOPLASTIN TIME 26.5 SECONDS (23.5-31.3); PROTHROMBIN TIME (PATIENT) 13.4 SECONDS (10.0-11.7)
[2017-04-30 11:54] LABS: ALBUMIN SERUM 2.6 g/dL (3.5-5.0); ALKALINE PHOSPHATASE 226 U/L (32-92); ALT (SGPT) 32 U/L (10-40); AST (SGOT) 231 U/L (10-42); BILIRUBIN, DIRECT 0.9 mg/dL (0.0-0.2); BILIRUBIN,INDIRECT 1.1 mg/dL (0.0-0.9); BLOOD UREA NITROGEN 10 mg/dL (9-23); BUN/CREATININE RATIO 14.28; CALCIUM SERUM 8.3 mg/dL (8.4-10.2); CARBON DIOXIDE 28 mmol/L (22-31); CHLORIDE 97 mmol/L (100-111); CREATININE SERUM 0.7 mg/dL (0.6-1.4); GLOM FILT RATE Estimated 109.1 mL/min (>60); GLUCOSE FASTING 213 mg/dL (70-110); POTASSIUM 3.7 mmol/L (3.5-5.1); PROTEIN TOTAL SERUM 5.4 g/dL (6.0-8.3); SALICYLATE <4.0 mg/dL; SODIUM 141 mmol/L (135-145)
[2017-04-30 11:56] LABS: ARTERIAL BLD GAS O2 SATURATION 93.7 % (90.0-100.0); ARTERIAL BLOOD GAS CARBOXY HB 3.6 %sat (0.0-9.0); ARTERIAL BLOOD GAS HCO3 24.1 mmol/L; ARTERIAL BLOOD GAS pH 7.245 (7.350-7.450)
[2017-04-30 11:57] LABS: ARTERIAL BLOOD GAS PCO2 55.6 mmHg (35.0-45.0)
[2017-04-30 11:57] LABS: ACETAMINOPHEN <10 ug/mL; ALCOHOL BLOOD <5 mg/dL (0)
[2017-04-30 11:58] LABS: ARTERIAL BLOOD GAS ALLEN TEST NORMAL; ARTERIAL BLOOD GAS ART SITE LEFT RADIAL; ARTERIAL BLOOD GAS DELIVERY VENT; ARTERIAL BLOOD GAS VENT MODE AC; ARTERIAL DRAW? YES
[2017-04-30 12:08] LABS: PLATELET ESTIMATE NORMAL (NORMAL)
[2017-04-30 12:14] LABS: POC - CKMB 6.3 ng/mL (0.0-7.9); POC - TROPONIN <0.05 ng/mL (<=0.05)
[2017-04-30 12:24] LABS: URINE SOURCE CLEAN CATCH
[2017-04-30 12:29] LABS: URINE APPEARANCE CLOUDY; URINE BLOOD 3+ (NEG); URINE COLOR DK YELLOW; URINE GLUCOSE 100 MG/DL (NEG); URINE KETONE NEG (NEG); URINE LEUKOCYTE ESTERASE TRACE (NEG); URINE NITRATE NEG (NEG); URINE PROTEIN 3+ (NEG); URINE SPECIFIC GRAVITY 1.028 (1.003-1.035)
[2017-04-30 12:31] LABS: CULTURE INDICATED? YES; URINE BACTERIA AUWI NEG (NEGATIVE); URINE SQUAMOUS EPITHELIAL CELL FEW /[HPF]; UWBCS1 AUWI 50-100 (0-5)
[2017-04-30 12:39] LABS: URINE BILIRUBIN POS (NEG)
[2017-04-30 12:56] LABS: AMPHETAMINE NEG (NEG); BARBITURATES NEG (NEG); BENZODIAZEPINES POS (NEG); COCAINE NEG (NEG); MARIJUANA NEG (NEG); OPIATES POS (NEG); TRICYCLIC ANTIDEPRESSANTS NEG (NEG); U METHADONE NEG (NEG)
[2017-04-30 12:57] LABS: URINE MUCUS PRESENT
[2017-04-30 17:17] LABS: POC - CKMB 25.9 ng/mL (0.0-7.9); POC - TROPONIN 2.27 ng/mL (<=0.05)
[2017-05-01 06:14] LABS: HEMATOCRIT 30.7 % (35.0-45.0); LYMPHOCYTE# 1.6 X10e3 (1.0-3.5); LYMPHOCYTE% 11.8 % (17.0-45.0); MEAN CELL VOLUME 113.7 FL (83-96); MEAN CORPUSCULAR HEMOGLOBIN 37.2 PG (28-34); MEAN CORPUSCULAR HGB CONC 32.7 g/dL (30-36); MEAN PLATELET VOLUME 8.8 FL (6.5-11.5); MONOCYTE# 0.6 X10e3 (0-1.0); MONOCYTE% 4.6 % (3.0-12.0); NEUTROPHIL# 11.7 X10e3 (1.5-7.1); NEUTROPHIL% 83.6 % (40-75); PLATELET COUNT 169 X10e3 (140-420); RED CELL DISTRIBUTION WIDTH 13.2 % (11.0-15.5); WHITE BLOOD COUNT 13.9 X10e3 (4.0-10.5)
[2017-05-01 06:26] LABS: HEMOGLOBIN 10.1 gm/dL (12.0-16.0)
[2017-05-01 06:29] LABS: DIFF IND NO
[2017-05-01 06:35] LABS: THYROID STIMULATING HORMONE 0.61 uIU/ml (0.34-5.60)
[2017-05-01 06:42] LABS: FREE THYROXIN (T4) 1.16 ng/dL (0.58-1.64)
[2017-05-01 06:50] LABS: ALBUMIN SERUM 1.5 g/dL (3.5-5.0); ALKALINE PHOSPHATASE 119 U/L (32-92); ALT (SGPT) 29 U/L (10-40); AST (SGOT) 126 U/L (10-42); BILIRUBIN,TOTAL 1.3 mg/dL (0.2-2.0); BLOOD UREA NITROGEN 8 mg/dL (9-23); CARBON DIOXIDE 17 mmol/L (22-31); CHLORIDE 122 mmol/L (100-111); GLUCOSE FASTING 65 mg/dL (70-110); PROTEIN TOTAL SERUM 3.1 g/dL (6.0-8.3); SODIUM 145 mmol/L (135-145)
[2017-05-01 06:57] LABS: BUN/CREATININE RATIO 26.66; CREATININE SERUM <0.3 mg/dL (0.6-1.4); GLOM FILT RATE Estimated UNABLE TO CALCULATE mL/min (>60)
[2017-05-01 06:58] LABS: CALCIUM SERUM 4.6 mg/dL (8.4-10.2); POTASSIUM 2.2 mmol/L (3.5-5.1)
[2017-05-01 08:30] LABS: BUN/CREATININE RATIO 22.5; CREATININE SERUM 0.4 mg/dL (0.6-1.4); GLOM FILT RATE Estimated 131.2 mL/min (>60)
[2017-05-01 08:34] LABS: CALCIUM SERUM 4.9 mg/dL (8.4-10.2)
[2017-05-01 08:35] LABS: POTASSIUM 2.2 mmol/L (3.5-5.1)
[2017-05-01 09:23] LABS: ARTERIAL BLD GAS O2 SATURATION 96.8 % (90.0-100.0); ARTERIAL BLOOD GAS CARBOXY HB 0.8 %sat (0.0-9.0); ARTERIAL BLOOD GAS HCO3 21.7 mmol/L; ARTERIAL BLOOD GAS MET HB 0.6 %sat (0.0-2.0); ARTERIAL BLOOD GAS PCO2 34.6 mmHg (35.0-45.0); ARTERIAL BLOOD GAS pH 7.406 (7.350-7.450)
[2017-05-01 09:24] LABS: ARTERIAL BLOOD GAS ART SITE LEFT BRACHIAL; ARTERIAL BLOOD GAS DELIVERY NASAL CANNULA; ARTERIAL DRAW? YES
[2017-05-01 10:50] LABS: AMYLASE 19 U/L (0-46); LIPASE 20 U/L (22-51)
[2017-05-01 16:30] LABS: POTASSIUM 3.1 mmol/L (3.5-5.1)
[2017-05-01 16:31] LABS: CHOLESTEROL 73 mg/dL (0-200); HDL CHOLESTEROL 11 mg/dL (35-95); LDL CHOLESTEROL 48 mg/dL (-130); LDL/HDL RATIO 4 RATIO (0-4); TRIGLYCERIDES 68 mg/dL (10-160)
[2017-05-01 16:32] LABS: MAGNESIUM 8.3 mg/dL (1.6-3.0)
[2017-05-01 17:26] LABS: POTASSIUM 3.2 mmol/L (3.5-5.1)
[2017-05-02 05:11] LABS: BASOPHIL% 0.1 % (0-2.5); HEMATOCRIT 33.9 % (35.0-45.0); HEMOGLOBIN 11.7 gm/dL (12.0-16.0); LYMPHOCYTE# 2.1 X10e3 (1.0-3.5); MEAN CORPUSCULAR HEMOGLOBIN 37.7 PG (28-34); MEAN CORPUSCULAR HGB CONC 34.6 g/dL (30-36); MEAN PLATELET VOLUME 8.5 FL (6.5-11.5); MONOCYTE# 0.7 X10e3 (0-1.0); MONOCYTE% 5.5 % (3.0-12.0); NEUTROPHIL# 10.1 X10e3 (1.5-7.1); NEUTROPHIL% 78.4 % (40-75); PLATELET COUNT 168 X10e3 (140-420); RED BLOOD COUNT 3.11 X10e (3.90-5.30); WHITE BLOOD COUNT 12.9 X10e3 (4.0-10.5)
[2017-05-02 05:12] LABS: DIFF IND NO; MEAN CELL VOLUME 109.2 FL (83-96)
[2017-05-02 05:40] LABS: ALBUMIN SERUM 2.3 g/dL (3.5-5.0); BUN/CREATININE RATIO 11.66; CREATININE SERUM 0.6 mg/dL (0.6-1.4); GLOM FILT RATE Estimated 114.8 mL/min (>60); MAGNESIUM 1.8 mg/dL (1.6-3.0); PHOSPHOROUS 1.1 mg/dL (2.5-4.6); POTASSIUM 3.5 mmol/L (3.5-5.1); PROTEIN TOTAL SERUM 4.9 g/dL (6.0-8.3)
[2017-05-02 05:42] LABS: CALCIUM SERUM 7.3 mg/dL (8.4-10.2)
[2017-05-02 20:53] LABS: MAGNESIUM 1.5 mg/dL (1.6-3.0)
[2017-05-02 20:55] LABS: POTASSIUM 2.8 mmol/L (3.5-5.1)
[2017-05-03 05:56] LABS: EOSINOPHIL% 0.1 % (0.0-7.0); HEMOGLOBIN 12.1 gm/dL (12.0-16.0); LYMPHOCYTE# 1.4 X10e3 (1.0-3.5); LYMPHOCYTE% 11.7 % (17.0-45.0); MEAN CELL VOLUME 109.2 FL (83-96); MEAN CORPUSCULAR HEMOGLOBIN 36.7 PG (28-34); MEAN CORPUSCULAR HGB CONC 33.6 g/dL (30-36); MEAN PLATELET VOLUME 8.5 FL (6.5-11.5); MONOCYTE# 0.7 X10e3 (0-1.0); MONOCYTE% 6.1 % (3.0-12.0); NEUTROPHIL# 9.7 X10e3 (1.5-7.1); NEUTROPHIL% 82.1 % (40-75); PLATELET COUNT 197 X10e3 (140-420); RED BLOOD COUNT 3.29 X10e (3.90-5.30); RED CELL DISTRIBUTION WIDTH 12.8 % (11.0-15.5); WHITE BLOOD COUNT 11.9 X10e3 (4.0-10.5)
[2017-05-03 05:57] LABS: DIFF IND NO
[2017-05-03 07:04] LABS: ALBUMIN SERUM 2.6 g/dL (3.5-5.0); BILIRUBIN,TOTAL 1.7 mg/dL (0.2-2.0); CALCIUM SERUM 8.2 mg/dL (8.4-10.2); CREATININE SERUM 0.5 mg/dL (0.6-1.4); GLOM FILT RATE Estimated 121.9 mL/min (>60); MAGNESIUM 2.5 mg/dL (1.6-3.0); PHOSPHOROUS 2.6 mg/dL (2.5-4.6); POTASSIUM 3.3 mmol/L (3.5-5.1); PROTEIN TOTAL SERUM 5.7 g/dL (6.0-8.3)
[2017-05-04 05:06] LABS: BASOPHIL% 0.1 % (0-2.5); EOSINOPHIL% 0.2 % (0.0-7.0); HEMATOCRIT 32.6 % (35.0-45.0); HEMOGLOBIN 11.3 gm/dL (12.0-16.0); LYMPHOCYTE# 1.8 X10e3 (1.0-3.5); LYMPHOCYTE% 18.1 % (17.0-45.0); MEAN CELL VOLUME 108.8 FL (83-96); MEAN CORPUSCULAR HEMOGLOBIN 37.8 PG (28-34); MEAN CORPUSCULAR HGB CONC 34.7 g/dL (30-36); MEAN PLATELET VOLUME 8.4 FL (6.5-11.5); MONOCYTE# 0.8 X10e3 (0-1.0); MONOCYTE% 7.8 % (3.0-12.0); NEUTROPHIL# 7.3 X10e3 (1.5-7.1); NEUTROPHIL% 73.8 % (40-75); PLATELET COUNT 160 X10e3 (140-420); RED BLOOD COUNT 2.99 X10e (3.90-5.30); RED CELL DISTRIBUTION WIDTH 12.8 % (11.0-15.5); WHITE BLOOD COUNT 9.8 X10e3 (4.0-10.5)
[2017-05-04 05:08] LABS: DIFF IND NO
[2017-05-04 05:23] LABS: ALBUMIN SERUM 2.4 g/dL (3.5-5.0); BILIRUBIN,TOTAL 1.7 mg/dL (0.2-2.0); CALCIUM SERUM 8.2 mg/dL (8.4-10.2); CREATININE SERUM 0.5 mg/dL (0.6-1.4); GLOM FILT RATE Estimated 121.9 mL/min (>60); POTASSIUM 3.5 mmol/L (3.5-5.1); PROTEIN TOTAL SERUM 5.3 g/dL (6.0-8.3)
[2017-05-04 12:26] LABS: INR 1.1; PARTIAL THROMBOPLASTIN TIME 27.5 SECONDS (23.5-31.3)
[2017-05-04] MEDS ORDERED: LIPITOR80 MG PO (16:43)
[2017-05-04] MEDS ORDERED: CELEXA PO (16:43)
[2017-05-04] MEDS ORDERED: ALBUTEROL17 GM INH (16:44)
[2017-05-04] MEDS ORDERED: SYMBICORT INH (16:44)
[2017-05-04] MEDS ORDERED: BUSPAR PO (16:45)
[2017-05-04] MEDS ORDERED: LASIX PO (16:46)
[2017-05-04] MEDS ORDERED: COREG6.25 MG PO (16:46)
[2017-05-04] MEDS ORDERED: LISINOPRIL5 MG PO (16:47)
[2017-05-04] MEDS ORDERED: MOBIC15 MG PO (16:48)
[2017-05-04] MEDS ORDERED: ALDACTONE25 MG PO (16:49)
[2017-05-04] MEDS ORDERED: ZYPREXA10 MG PO (16:51)
[2017-05-04] MEDS ORDERED: NITROGLYGERIN0.4 MG SL (16:51)
[2017-05-04] MEDS ORDERED: [UNRECOGNIZED DRUG - REMARK] (16:52)
[2017-05-05 05:40] LABS: HEMATOCRIT 36.4 % (35.0-45.0); HEMOGLOBIN 12.7 gm/dL (12.0-16.0); MEAN CELL VOLUME 109.2 FL (83-96); MEAN CORPUSCULAR HEMOGLOBIN 38.1 PG (28-34); MEAN CORPUSCULAR HGB CONC 34.9 g/dL (30-36); MEAN PLATELET VOLUME 8.9 FL (6.5-11.5); RED BLOOD COUNT 3.33 X10e (3.90-5.30); RED CELL DISTRIBUTION WIDTH 12.7 % (11.0-15.5); WHITE BLOOD COUNT 12.4 X10e3 (4.0-10.5)
[2017-05-05 06:26] LABS: CALCIUM SERUM 8.6 mg/dL (8.4-10.2); CREATININE SERUM 0.5 mg/dL (0.6-1.4); GLOM FILT RATE Estimated 121.9 mL/min (>60); MAGNESIUM 1.5 mg/dL (1.6-3.0)
[2017-06-13] MEDS ORDERED: METOPROLOL SUCC50 MG PO (17:30)
[2017-06-13] MEDS ORDERED: IBUPROFEN PO (17:30)
[2017-06-13] MEDS ORDERED: LISINOPRIL PO (17:30)
[2017-06-13] MEDS ORDERED: BUMEX1 MG PO (17:30)
[2017-06-13] MEDS ORDERED: PATIENT'S PHARMACY (17:30)
[2017-06-13] MEDS ORDERED: DESYREL50 MG PO (17:30)
[2017-06-13] MEDS ORDERED: ALDACTONE PO (17:30)
[2017-06-13] MEDS ORDERED: LIPITOR20 MG PO (17:35)
[2017-06-13] MEDS ORDERED: HYDROXYZINE HCL25 M1 PO (17:35)
[2017-06-13] MEDS ORDERED: GUAIFENESIN LA600 M1 PO (17:36)
[2017-06-13] MEDS ORDERED: ZOFRAN PO (17:36)
[2017-06-13] MEDS ORDERED: BENTYL10 M1 PO (17:36)
[2017-06-13] MEDS ORDERED: PHENERGAN PO (17:36)
[2017-06-13] MEDS ORDERED: GABAPENTIN300 MG PO (17:36)
[2017-06-15] MEDS ORDERED: TUMS200 MG (14:40)
== END 2017-05-05 13:38 | DRG 917 ==
LOC: CED 10:25 → CEDOF 12:27 → CICCU3 12:27 → CED 15:01 → CEDOF 15:01 → CICCU3 18:09 → CEDOF 18:09 → CICCU3 05-01 07:34 → C5B 05-04 01:55
PROVIDERS: Emergency Medicine; Family Medicine; Internal Medicine; Internal Medicine Cardiovascular Disease; Internal Medicine Pulmonary Disease
PROC: 0BH18EZ Insertion of Endotracheal Airway into Trachea, Via Natural or Artificial Opening Endoscopic (ICD-10-PCS; principal; 2017-04-30)
PROC: 5A1935Z Respiratory Ventilation, Less than 24 Consecutive Hours (ICD-10-PCS; 2017-04-30)
PROC: B246YZZ Ultrasonography of Right and Left Heart using Other Contrast (ICD-10-PCS; 2017-05-01)
PROC: 05H333Z Insertion of Infusion Device into Right Innominate Vein, Percutaneous Approach (ICD-10-PCS; 2017-05-01)
PROC: B54MZZA Ultrasonography of Right Upper Extremity Veins, Guidance (ICD-10-PCS; 2017-05-01)
PROC: 0DH67UZ Insertion of Feeding Device into Stomach, Via Natural or Artificial Opening (ICD-10-PCS; 2017-05-02)
PROC: 4A023N7 Measurement of Cardiac Sampling and Pressure, Left Heart, Percutaneous Approach (ICD-10-PCS; 2017-05-04)
PROC: B211YZZ Fluoroscopy of Multiple Coronary Arteries using Other Contrast (ICD-10-PCS; 2017-05-04)
PROC: B215YZZ Fluoroscopy of Left Heart using Other Contrast (ICD-10-PCS; 2017-05-04)
DX: T40.601A Poisoning by unspecified narcotics, accidental (unintentional), initial encounter (principal); I50.21 Acute systolic (congestive) heart failure; I49.01 Ventricular fibrillation; K72.00 Acute and subacute hepatic failure without coma; J96.21 Acute and chronic respiratory failure with hypoxia; R57.0 Cardiogenic shock; I42.6 Alcoholic cardiomyopathy; F11.20 Opioid dependence, uncomplicated; E46 Unspecified protein-calorie malnutrition; I48.91 Unspecified atrial fibrillation; G93.1 Anoxic brain damage, not elsewhere classified; F13.20 Sedative, hypnotic or anxiolytic dependence, uncomplicated; F33.2 Major depressive disorder, recurrent severe without psychotic features; M62.82 Rhabdomyolysis; N39.0 Urinary tract infection, site not specified; E83.42 Hypomagnesemia; I34.1 Nonrheumatic mitral (valve) prolapse; F17.210 Nicotine dependence, cigarettes, uncomplicated; Z90.49 Acquired absence of other specified parts of digestive tract; E87.6 Hypokalemia; Z71.41 Alcohol abuse counseling and surveillance of alcoholic; Z71.51 Drug abuse counseling and surveillance of drug abuser; R62.7 Adult failure to thrive; F10.20 Alcohol dependence, uncomplicated; I45.81 Long QT syndrome
CPT/HCPCS: 31500; 36415; 36600; 70450; 71010; 80048; 80053; 80061; 80076; 80307; 81003; 82140; 82150; 82550; 82553; 82803; 83605; 83690; 83735; 84100; 84132; 84439; 84443; 84484; 84703; 85025; 85027; 85610; 85730; 86592; 87040; 87086; 93005; 93306; 94002; 94003; 94760; 94761; 96361; 96374; 97110; 97116; 97163; 97167; 97530; 97535; 99291; C1769; C1887; C9113; G0480; G8978-GP; G8979-GP; G8987-GO; G8988-GO; J0610; J0696; J1250; J1644; J1650; J2060; J2250; J2270; J2370; J2543; J2550; J3010; J3411; J3475; J3490; J7042

== ENCOUNTER 2017-05-17 20:06 | Inpatient (IN) | payer BC ==
[~2017-05-17] VITALS: Ht 165.1 cm; Wt 43.4 kg
--- NOTE | ~2017-05-17 | DS ---
Unit #: [id number] #: [id number] Patient: LATOSHA VILA [id number] [place], [place] [address] [id number] I MR#: [id number] NAME: LATOSHA VILA ROOM: 317 Age: 41 Sex: F Admission Date: 05/18/2017 : 1975 Discharge Date: 05/18/2017 Attending Physician: Randa Gipson M.D. Primary Care Physician: No Primary Care Physician DISCHARGE SUMMARY Please note, patient left AMA. HISTORY OF PRESENT ILLNESS/HOSPITAL COURSE Please see H and P for complete details of initial part of hospital stay. It was noted patient does have an ejection fraction of approximately 10% secondary to recent history of V fib arrest from opioid overdose. Apparently she had a recent alcohol binge. She was admitted secondary to acute alcohol intoxication, as well as persistent hypotension. She was placed on telemetry floor. All of her routine cardiac markers were placed on hold. Her systolic blood pressure was maintained in between the 80s and 90s. Consultation was placed to cardiology services. Dr. Rondon and associates saw and evaluated the patient while we awaited for her systolic blood pressure to start rising. Consideration was being given to possible dobutamine for pressure support, especially in light of her systolic heart failure. At that point in time the patient stated that she no longer wished to stay in the hospital. The patient stated that she no longer wished to stay in the hospital and she wished to go home. I explained to her in detail the likelihood that she may and/or while at home secondary to her hypotension, as well as poor ejection fraction. She expressed complete understanding. She was alert and oriented at the time of discharge. She elected to leave against medical advise on no cardia medications. In fact, none of her medications are known at the time of discharge. Her overall long-term prognosis is very poor. Life expectancy at this point in time in consideration of ejection fraction of approximately 10%, as well as patient's lack of insight and disease process is likely less than six months. All results were communicated with patient's family who was also present at bedside. Unfortunately patient elected to leave against medical advice. FINAL DISCHARGE DIAGNOSES 1. Acute alcohol intoxication. 2. Chronic systolic heart failure with ejection fraction of 10%. 3. Nonischemic cardiomyopathy. 4. Recent hospital admission 04/2017 secondary to V-fib/torsades resuscitated arrest. 5. Status post automatic implantable cardioverter defibrillator secondary to above. DISCHARGE MEDICATIONS Unknown as patient elected to leave AMA. Unit #: [id number] #: [id number] Patient: LATOSHA VILA Dictated by... Bhavya Carlos/david TD: 05/22/2017 07:59 JOB #: [id number] DISCHARGE SUMMARY Page 1 of 1 X Randa Gipson MD X DISCHARGE SUMMARY
--- NOTE | ~2017-05-17 | CT52 ---
[facility] A Service of [facility] RADIOLOGY TEXT RESULTS PATIENT: LATOSHA VILA LOCATION: [facility] 317- : 77 UNIT #: [id number] AGE: [address]: Randa Gipson MD SEX: F ORDER DR: [id number] [place] [id number] [facility]. [place], [place] [address] [id number] I MR#: [id number] #: [id number] NAME: LATOSHA VILA : 1975 SEX: F STUDY DATE/TIME: 05/17/2017 23:36 UNIT: A PCU ROOM: [facility] STUDY DESCRIPTION: CT Cervical Spine Wo Cont Attending Physician: Randa Gipson M.D. Ordering Physician: Guido Serrano D.O. Primary Care Physician: Primary Care Physician No MEDICAL IMAGING REPORT This report is preliminary unless electronic signature is present EXAM CT cervical spine, 05/17/2017 HISTORY 41-year-old female in the ED with head and neck pain after a fall today. Nosebleed. Ethanol intoxication is reported. Agitated/ uncooperative patient. TECHNIQUE Thin-section axial CT images were obtained from the skull base through the upper margin of T2. Sagittal and coronal images were reconstructed. This CT examination was performed with one or more of the following radiation dose reduction techniques: automatic exposure control, adjustment of mA and/or kV according to patient size, and iterative reconstruction. FINDINGS No fracture or other acute osseous abnormality is demonstrated. Mild degenerative disc space narrowing at C5-6. Cervical disc spaces and cervical vertebral alignment are otherwise within normal limits. IMPRESSION 1. No acute osseous abnormality. 2. Mild degenerative disc space changes at C5-6. Dictated by... Rosalio Hunter M.D. THIS IS AN ELECTRONICALLY VERIFIED REPORT Rosalio Hunter M.D. at 05/21/2017 11:06 PM RGW/[facility] A Service [facility] RADIOLOGY TEXT RESULTS PATIENT: LATOSHA VILA LOCATION: [facility] 317- : 77 UNIT #: [id number] AGE: [address]: Randa Gipson MD SEX: F ORDER DR: TD: 05/18/2017 13:27 JOB #: [id number] MEDICAL IMAGING REPORT Page 1 of 1 COPY
--- NOTE | ~2017-05-17 | EKG ---
PATIENT: LATOSHA VILA UNIT #: [id number] Ventricular Rate: 81 BPM Atrial Rate: 81 BPM P-R Interval: 148 ms QRS Duration: 90 ms Q-T Interval: 416 ms QTC Calculation(Bezet): 483 ms P [place]: 78 degrees Calculated R [place]: 42 degrees Calculated T [place]: -148 degrees Diagnosis Line: Normal sinus rhythm Diagnosis Line: Possible Left atrial enlargement Diagnosis Line: ST and Marked T wave abnormality, consider Diagnosis Line: anterolateral ischemia Diagnosis Line: Marked T wave abnormality, consider inferior Diagnosis Line: ischemia Diagnosis Line: Prolonged QT Diagnosis Line: Abnormal ECG Diagnosis Line: No previous ECGs available Diagnosis Line: Confirmed by MANOLO MORRISON MD ([id number]) on 05/18/2017 Diagnosis Line: 5:11:56 PM INTERPRETING MD: PRINCE DOBBINS
--- NOTE | ~2017-05-17 | HP ---
Unit #: [id number] #: [id number] Patient: LATOSHA VILA [id number] [address] [address] [id number] I MR#: [id number] NAME: LATOSHA VILA ROOM: 317 Age: 41 Sex: F Admission Date: 05/18/2017 : 1975 Attending Physician: Mary Maxwell M.D. Primary Care Physician: No Primary Care Physician HISTORY AND PHYSICAL CHIEF COMPLAINT Fall after alcohol intoxication with subsequent hypotension. HISTORY This pleasant 41-year-old female with a history of alcohol abuse, recent admission for V fib arrest with a nonischemic cardiomyopathy, is admitted for a fall. The patient does not remember what occurred earlier. I'm told that she began abusing alcohol abuse about two to three days ago. She fell and hit her head. She was to this emergency department late last evening, intoxicated with an alcohol level of 403. She initially did not want to stay, but family refused to take her home. She therefore, was placed on a hold. She refused further workup until over the past couple of hours when she became less intoxicated. While in the ER her systolic blood pressure was around 80, she was given a small bolus of IV fluids. She has been given a second bolus with improvement of her blood pressure. She states that on her current cardiac markers she has become very lightheaded and dizzy. Patient was admitted to this facility 04/30/2017 for a V fib resuscitated arrest. Ejection fraction 10%. Elevated troponin. Cardiac catheterization showed normal coronary arteries. During her presentation last evening her magnesium and potassium were quite low. She was later transferred to [facility] for an AICD. Patient denies any symptoms of infection, no cough, dysuria, diarrhea, no fevers or chills. PAST MEDICAL HISTORY 1. Recent admission 04/30/2017 for V fib/torsades resuscitated arrest associated with hypokalemia and hyponatremia. Patient was found to have a nonischemic cardiomyopathy, ejection fraction 10% Elevated troponin. Cardiac catheterization showed normal coronary arteries. She was later transferred to [facility] for an AICD. 2. Alcohol abuse. 3. Alcohol induced pancreatitis. 4. Mitral valve prolapse. 5. Cholecystectomy. ALLERGIES No known drug allergies. HOME MEDICATIONS Unit #: [id number] #: [id number] Patient: LATOSHA VILA Possibly Lipitor, Bumex, lisinopril, magnesium, metoprolol, Protonix, multivitamin. Will obtain discharge summary from [facility] or call patient's pharmacy. FAMILY HISTORY CAD and CHF. SOCIAL HISTORY The patient states that she lives with her son and . Smokes 1/2 pack per day of tobacco. No longer drinks alcohol on a daily basis, but has been drinking for the past two to three days about a quart a day. REVIEW OF SYSTEMS Notable for nonischemic cardiomyopathy, alcohol abuse, cholecystectomy. Patient denies any other symptoms. All other systems reviewed and otherwise negative. PHYSICAL EXAMINATION GENERAL: Pleasant, very thin, 41-year-old female currently in no acute distress. VITAL SIGNS: Temperature 98.7, pulse 80, respirations 16, initial blood pressure 90/61 but systolic blood pressures did dip into the 80s. O2 saturation 98% on room air. HEENT: Eyes - PERRLA, extraocular muscles are intact. Slight horizontal nystagmus. Pharynx is benign. NECK: Supple without adenopathy or thyromegaly. CHEST: Clear. CARDIAC: Normal S1 and S2 without definite murmur. Healing incision left upper chest from recent AICD placement. ABDOMEN: Bowel sounds are present. No hepatosplenomegaly, tenderness or masses. EXTREMITIES: Without clubbing, cyanosis or edema. Pedal pulses are present. No ulcers on the feet. No splinter hemorrhages noted over the fingernail beds. NEUROLOGIC: Patient is awake, alert and oriented. Cranial nerves are intact. Equal strength throughout. DIAGNOSTIC STUDIES ADMISSION LABS: Hematocrit 36.5, MCV 108.2, white blood count 11.1, platelet count is 699. Coags normal. SMA 12 - chloride is 94, albumin 3.1, alk phos 139. BNP 274. Lactic acid 2.4, uncertain etiology, likely this represents poor perfusion. Patient has no evidence of sepsis. Alcohol level 403. Beta HCG negative. Cardiac markers are negative. Urine tox screen negative. Urinalysis unremarkable except for trace leukocyte esterase. IMAGING STUDIES: Chest x-ray - no acute disease. CT of the C-spine - mild DJD. CT of the head - no acute disease. Chest x-ray - AICD noted but no acute disease. CARDIOLOGY STUDIES: EKG - sinus rhythm rate [address] wave inversions inferiorly and laterally and prolonged QT interval. Cardiac markers are negative. Unit #: [id number] #: [id number] Patient: LATOSHA VILA ASSESSMENT 1. Alcohol intoxication with fall. 2. Hypotension while in the ER, likely related to current cardiac medications. Patient is not septic. 3. Alcohol abuse. 4. Nonischemic cardiomyopathy, ejection fraction 10% with normal coronary arteries. 5. Recent V fib arrest for which the patient was resuscitated 04/30/2017. Had recent AICD placed at [facility]. 6. Elevated lactic acid likely related to low perfusion from low blood pressure. Again patient is not septic. PLANS 1. Hold cardiac medications until blood pressure improves. 2. Benzos and vitamins. 3. Need home medication list. 4. SCDs for DVT prophylaxis. 5. Repeat labs this morning. 6. Gentle bolus of IV fluids given in the ER. 7. Will not treat for sepsis as patient has no infection. 8. Likely cardiac consultation. Dictated by Bhavya Katz/ts TD: 05/18/2017 05:40 JOB #: [id number] HISTORY AND PHYSICAL Page 1 of 1 X Mary Maxwell MD X HISTORY AND PHYSICAL
--- NOTE | ~2017-05-17 | A ---
[facility] Nutrition Therapy DATE: 05/18/17 Patient: LATOSHA VILA Physician: JOHN Address: [address] [facility] Room/Bed: [address] [place] [address], Zip: [place] [address] Admit Date: 05/18/17 Date of : [birth year] Height: 5 5 Weight: 95 43.4 NUTRITIONAL ASSESSMENT: REASON: LOW BMI PT IS 41 Y.O. FEMALE ADMITTED FOR ETOH W/INTOXICATION W/FALL, HYPOTENSION PMH: ETOH ABUSE SINCE AGE 22, ETOH INDUCED PANCREATITIS, OPIOID ABUSE, 1 PPD SMOKER, HX OF EMMANUEL Anthropometrics: 5'5", WT: 95# (43 KG), BMI: 15.8, 76%IBW Labs: BUN: 8, CREAT: 0.5, ALB: 3.1, M.4 Meds: NACL, FOLIC ACID, MVI, THERAPEUTIC FORMULA, THIAMINE, BANANA BAG CURRENTLY HANGING IN ROOM I/O & Bowel function: 0/0 Skin Integrity: NO KNOWN SKIN ISSUES Estimated Nutrition Needs: INCREASED NEEDS 2' PT UNDERWEIGHT, ?WEIGHT LOSS NOTED, PMH Assessment: CHART REVIEWED AND EVENTS NOTED. PT SEEN FOR LOW BMI (UNDERWEIGHT STATUS). PT REPORTS HER PO INTAKE AND APPETITE ARE "ERRATIC", NOTING APPETITE "UP AND DOWN". PT NOTES CURRENT WEIGHT IS 100#. PT AWARE SHE WOULD BENEFIT FROM ~20-30# WEIGHT GAIN. OF NOTE, RD ASSESSED ON 05/01/17 AND NOTED PT'S WEIGHT WAS ~106#. THIS RD ENCOURAGED ADEQUATE KCAL AND PROTEIN INTAKE TO PROMOTE WEIGHT GAIN, PT AGREED TO ENSURE SHAKES, RD TO ORDER. PT REPORTED NO DIET QUESTIONS AT THIS VISIT. PER RD OBSERVATION, PT ACTED LIKE SHE WAS GOING HOME TODAY. RD TO REMAIN AVAILABLE. Dx: INADEQUATE PROTEIN-ENERGY INTAKE R/T PMH AEB LOW BMI OF 15.8, 76%IBW, ?WEIGHT LOSS NOTED. Intervention: 1. HEALTHY HEART DIET 2. ENSURE SHAKES BID Monitoring, Evaluation and Goals: 1. ORAL INTAKE; CONSUME/TOLERATE >50% OF MEALS AND SUPPLEMENTS 2. WEIGHTS; PROMOTE GRADUAL WEIGHT GAIN TOWARDS HEALTHY BMI; PREVENT WEIGHT LOSS 3. LABS; WNL MONITOR: -PO INTAKE/APPETITE [facility] Nutrition Therapy DATE: 05/18/17 Patient: LATOSHA VILA Physician: JOHN Address: [address] Room/Bed: [address] [place] [address], Zip: [place] [address] Admit Date: 05/18/17 Date of : [birth year] Height: 5 5 Weight: 95 43.4 -WEIGHTS -SUPPLEMENT INTAKE Recommendations: 1. PLEASE ORDER CHOCOLATE ENSURE SHAKES BID W/MEALS FOR ADDITIONAL PROTEIN AND KCAL 2. IF PO INTAKE <50%, PLEASE CHANGE CURRENT DIET ORDER TO REGULAR TO BETTER FACILITATE PO INTAKE 3. ENCOURAGE ADEQUATE PO INTAKE 4. CONTINUE MVI, FOLATE AND THIAMINE 2' ETOH ABUSE 5. REPLETE LYTES PRN RD WILL F/U PER PROTOCOL PT IS MODERATELY COMPROMISED Respectfully, Shin Nascimento, LIZZY, LD [employer] [facility] cc: client file
--- NOTE | ~2017-05-17 | CT71 ---
[facility] A Service of [facility] RADIOLOGY TEXT RESULTS PATIENT: LATOSHA VILA LOCATION: [facility] 317 : 77 UNIT #: [id number] AGE: [address]: Randa Gipson MD SEX: F ORDER DR: [id number] [facility] [address] [facility]. [place], [place] [address] [id number] I MR#: [id number] Acc #: [id number] NAME: LATOSHA VILA : 1975 SEX: F STUDY DATE/TIME: 05/17/2017 23:31 UNIT: A PCU ROOM: [facility] STUDY DESCRIPTION: CT Head Wo Contrast Attending Physician: Randa Gipson M.D. Ordering Physician: Guido Serrano D.O. Primary Care Physician: No Primary Care Physician MEDICAL IMAGING REPORT This report is preliminary unless electronic signature is present EXAM CT head, noncontrast, 05/17/2017 HISTORY A 41-year-old female in the ED with head and neck pain after fall earlier today. Nosebleed. Ethanol intoxication is noted. Uncooperative/agitated patient. TECHNIQUE CT examination of the head was performed without contrast. Initial images significantly degraded by patient motion artifact. The examination was repeated with some improvement, and both sets of images are reviewed. This CT exam was performed with one or more of the following radiation dose reduction techniques: automatic exposure control, adjustment of mA and/or kV according to patient size, and iterative reconstruction. COMPARISON CT head, 04/30/2017. FINDINGS The examination is negative. No evidence of intracranial hemorrhage, mass, mass effect, cerebral edema, hydrocephalus or additional abnormality. No visible skull fracture. No change since the prior exam. IMPRESSION Negative head CT examination. No change since 04/30/2017. Dictated by... Rosalio Hunter M.D. [facility] A Service of [facility] RADIOLOGY TEXT RESULTS PATIENT: LATOSHA VILA LOCATION: [facility] 317- : [birth year] UNIT #: [id number] AGE: [address]: Randa Gipson MD SEX: F ORDER DR: THIS IS AN ELECTRONICALLY VERIFIED REPORT Rosalio Hunter M.D. at 05/21/2017 11:06 PM Isabell TD: 05/18/2017 13:23 JOB #: [id number] MEDICAL IMAGING REPORT Page 1 of 1 COPY
--- NOTE | ~2017-05-17 | CR72 ---
[facility] A Service of [facility] RADIOLOGY TEXT RESULTS PATIENT: LATOSHA VILA LOCATION: [facility] 317- : [birth year] UNIT #: [id number] AGE: [address]: Randa Gipson MD SEX: F ORDER DR: [id number] [facility] [address] [facility]. [place], [place] [address] [id number] I MR#: [id number] Acc #: [id number] NAME: LATOSHA VILA : 1975 SEX: F STUDY DATE/TIME: 05/17/2017 21:20 UNIT: A U ROOM: [facility] STUDY DESCRIPTION: CR Chest Single View Portable Attending Physician: Randa Gipson M.D. Ordering Physician: Guido Serrano D.O. Primary Care Physician: Primary Care Physician No MEDICAL IMAGING REPORT This report is preliminary unless electronic signature is present EXAM Portable chest radiograph INDICATION Fall with congestion today. FINDINGS Comparison made to prior exam from May 02, 2017. Heart size is within normal limits. Since prior examination, patient has undergone placement of a left-sided pacemaker. There is some lucency noted at the right lung apex; however, I suspect this is probably some emphysematous change. Similar findings were present on the prior study from May 02. No pneumothorax, pleural effusion, displaced rib fracture or acute infiltrate is identified. Dictated by... Kori Reyes M.D. THIS IS AN ELECTRONICALLY VERIFIED REPORT Kori Reyes M.D. at 05/18/2017 5:48 PM AFF/[facility]aris TD: 05/18/2017 12:33 JOB #: [id number] MEDICAL IMAGING REPORT Page 1 of 1 COPY
[~2017-05-17 20:06] MED LIST: ALBUTEROL17 GM INH; ALDACTONE25 MG PO; BUSPAR PO; CELEXA PO; COREG6.25 MG PO; LASIX PO; LIPITOR80 MG PO; LISINOPRIL5 MG PO; MOBIC15 MG PO; NITROGLYGERIN0.4 MG SL; SYMBICORT INH; ZYPREXA10 MG PO; [UNRECOGNIZED DRUG - REMARK]
[2017-05-17 21:24] LABS: POC - CKMB 5.9 ng/mL (0.0-7.9); POC - TROPONIN <0.05 ng/mL (<=0.05)
[2017-05-17 21:38] LABS: BASOPHIL# 0.1 X10e3 (0-0.3); BASOPHIL% 0.5 % (0-2.5); EOSINOPHIL# 0.1 X10e3 (0-0.7); EOSINOPHIL% 0.6 % (0.0-7.0); HEMATOCRIT 36.5 % (35.0-45.0); HEMOGLOBIN 12.4 gm/dL (12.0-16.0); LYMPHOCYTE# 4.2 X10e3 (1.0-3.5); LYMPHOCYTE% 38.3 % (17.0-45.0); MEAN CELL VOLUME 108.2 FL (83-96); MEAN CORPUSCULAR HEMOGLOBIN 36.8 PG (28-34); MEAN PLATELET VOLUME 6.7 FL (6.5-11.5); MONOCYTE# 0.4 X10e3 (0-1.0); MONOCYTE% 3.4 % (3.0-12.0); NEUTROPHIL# 6.3 X10e3 (1.5-7.1); NEUTROPHIL% 57.2 % (40-75); PLATELET COUNT 699 X10e3 (140-420); RED BLOOD COUNT 3.37 X10e (3.90-5.30); RED CELL DISTRIBUTION WIDTH 13.3 % (11.0-15.5); WHITE BLOOD COUNT 11.1 X10e3 (4.0-10.5)
[2017-05-17 21:39] LABS: DIFF IND YES
[2017-05-17 21:50] LABS: PARTIAL THROMBOPLASTIN TIME 24.3 SECONDS (23.5-31.3); PROTHROMBIN TIME (PATIENT) 10.6 SECONDS (10.0-11.7)
[2017-05-17 22:12] LABS: ALBUMIN SERUM 3.1 g/dL (3.5-5.0); ALKALINE PHOSPHATASE 139 U/L (32-92); ALT (SGPT) 18 U/L (10-40); AST (SGOT) 39 U/L (10-42); BILIRUBIN, DIRECT 0.3 mg/dL (0.0-0.2); BILIRUBIN,INDIRECT 0.2 mg/dL (0.0-0.9); BILIRUBIN,TOTAL 0.5 mg/dL (0.2-2.0); BLOOD UREA NITROGEN 9 mg/dL (9-23); CALCIUM SERUM 9.2 mg/dL (8.4-10.2); CARBON DIOXIDE 31 mmol/L (22-31); CHLORIDE 94 mmol/L (100-111); CREATININE SERUM 0.4 mg/dL (0.6-1.4); GLOM FILT RATE Estimated 131.2 mL/min (>60); GLUCOSE FASTING 103 mg/dL (70-110); PROTEIN TOTAL SERUM 6.9 g/dL (6.0-8.3); SALICYLATE <4.0 mg/dL; SODIUM 137 mmol/L (135-145)
[2017-05-17 22:16] LABS: ACETAMINOPHEN <10 ug/mL; ALCOHOL BLOOD 403 mg/dL (0)
[2017-05-17 22:18] LABS: ANISOCYTOSIS SL; PLATELET ESTIMATE INCREASED (NORMAL)
[2017-05-18 01:24] LABS: POC - CKMB 3.9 ng/mL (0.0-7.9); POC - TROPONIN <0.05 ng/mL (<=0.05)
[2017-05-18 02:01] LABS: AMPHETAMINE NEG (NEG); BARBITURATES NEG (NEG); BENZODIAZEPINES NEG (NEG); COCAINE NEG (NEG); MARIJUANA NEG (NEG); OPIATES NEG (NEG); TRICYCLIC ANTIDEPRESSANTS NEG (NEG); U METHADONE NEG (NEG)
[2017-05-18 02:02] LABS: URBCS1 AUWI 0-2 /[HPF] (0-2); URINE APPEARANCE CLEAR; URINE BACTERIA AUWI NEG (NEGATIVE); URINE BILIRUBIN NEG (NEG); URINE BLOOD NEG (NEG); URINE COLOR YELLOW; URINE GLUCOSE NEG (NEG); URINE KETONE NEG (NEG); URINE LEUKOCYTE ESTERASE TRACE (NEG); URINE NITRATE NEG (NEG); URINE PH 6.5 (5-8); URINE PROTEIN NEG (NEG); URINE SOURCE CLEAN CATCH; URINE SPECIFIC GRAVITY 1.006 (1.003-1.035); URINE SQUAMOUS EPITHELIAL CELL NONE SEEN /[HPF]; URINE UROBILINOGEN 0.2 MG/DL (NEG)
[2017-05-18 02:17] LABS: CULTURE INDICATED? NO
[2017-05-18] MEDS ORDERED: BUMEX1 MG PO (06:03)
[2017-05-18] MEDS ORDERED: METOPROLOL TAR25 MG PO (06:04)
[2017-05-18] MEDS ORDERED: ALDACTONE25 MG PO (06:05)
[2017-05-18] MEDS ORDERED: LISINOPRIL5 MG PO (06:05)
[2017-05-18] MEDS ORDERED: LIPITOR20 MG PO (06:05)
[2017-05-18 10:36] LABS: BASOPHIL# 0.1 X10e3 (0-0.3); BASOPHIL% 0.7 % (0-2.5); EOSINOPHIL# 0.1 X10e3 (0-0.7); EOSINOPHIL% 1.4 % (0.0-7.0); HEMATOCRIT 31.1 % (35.0-45.0); HEMOGLOBIN 10.9 gm/dL (12.0-16.0); LYMPHOCYTE# 2.7 X10e3 (1.0-3.5); LYMPHOCYTE% 33.1 % (17.0-45.0); MEAN CORPUSCULAR HEMOGLOBIN 37.2 PG (28-34); MEAN CORPUSCULAR HGB CONC 35.1 g/dL (30-36); MEAN PLATELET VOLUME 6.5 FL (6.5-11.5); MONOCYTE# 0.4 X10e3 (0-1.0); MONOCYTE% 5.1 % (3.0-12.0); NEUTROPHIL# 4.9 X10e3 (1.5-7.1); NEUTROPHIL% 59.7 % (40-75); PLATELET COUNT 534 X10e3 (140-420); RED BLOOD COUNT 2.93 X10e (3.90-5.30); RED CELL DISTRIBUTION WIDTH 13.1 % (11.0-15.5); WHITE BLOOD COUNT 8.3 X10e3 (4.0-10.5)
[2017-05-18 10:37] LABS: DIFF IND NO
[2017-05-18 11:07] LABS: CREATININE SERUM 0.5 mg/dL (0.6-1.4); GLOM FILT RATE Estimated 121.9 mL/min (>60); MAGNESIUM 1.4 mg/dL (1.6-3.0)
[2017-06-13] MEDS ORDERED: DESYREL50 MG PO (17:30)
[2017-06-13] MEDS ORDERED: PATIENT'S PHARMACY (17:30)
[2017-06-13] MEDS ORDERED: ALDACTONE PO (17:30)
[2017-06-13] MEDS ORDERED: BUMEX1 MG PO (17:30)
[2017-06-13] MEDS ORDERED: IBUPROFEN PO (17:30)
[2017-06-13] MEDS ORDERED: LISINOPRIL PO (17:30)
[2017-06-13] MEDS ORDERED: METOPROLOL SUCC50 MG PO (17:30)
[2017-06-13] MEDS ORDERED: HYDROXYZINE HCL25 M1 PO (17:35)
[2017-06-13] MEDS ORDERED: LIPITOR20 MG PO (17:35)
[2017-06-13] MEDS ORDERED: BENTYL10 M1 PO (17:36)
[2017-06-13] MEDS ORDERED: GABAPENTIN300 MG PO (17:36)
[2017-06-13] MEDS ORDERED: PHENERGAN PO (17:36)
[2017-06-13] MEDS ORDERED: ZOFRAN PO (17:36)
[2017-06-13] MEDS ORDERED: GUAIFENESIN LA600 M1 PO (17:36)
[2017-06-15] MEDS ORDERED: TUMS200 MG (14:40)
== END 2017-05-18 15:49 | disposition left against medical advice (07) | DRG 894 ==
LOC: CED 20:06 → CEDOF 05-18 03:34 → C3A PCU 05-18 05:16
PROVIDERS: Emergency Medicine; Internal Medicine
DX: F10.120 Alcohol abuse with intoxication, uncomplicated (principal); I50.23 Acute on chronic systolic (congestive) heart failure; E43 Unspecified severe protein-calorie malnutrition; I42.8 Other cardiomyopathies; I95.9 Hypotension, unspecified; Z68.1 Body mass index [BMI] 19.9 or less, adult; Y90.8 Blood alcohol level of 240 mg/100 ml or more; Z95.810 Presence of automatic (implantable) cardiac defibrillator; F11.21 Opioid dependence, in remission
CPT/HCPCS: 36415; 70450; 71010; 72125; 80048; 80076; 80307; 81003; 82550; 82553; 83605; 83735; 83880; 84484; 84703; 85025; 85610; 85730; 93005; 99285; G0480; J2370; J3411; J3475